=== PATIENT | female | born 1980 | race Two or more races ===

== ENCOUNTER 2017-04-24 01:38 | Inpatient (IN) | payer SELFPAY ==
[~2017-04-24] VITALS: Ht 152.4 cm; Wt 43.0 kg
[2017-04-24 02:28] LABS: Basophils # (auto) 0 uL; CONDITION Y; Eosinophils # (auto) 0 uL; Hematocrit 42.3 % (36.0-46.0); Hemoglobin 14.1 g/dL (12.2-16.2); Lymphocytes % (auto) 8.6 % (10.0-50.0); Mean Corpuscular Hemoglobin 30.2 pg (28.0-32.0); Mean Corpuscular Hgb Conc. 33.2 g/dL (32.0-36.0); Mean Platelet Volume 8.4 fL (7.4-10.4); Monocytes % (auto) 8.3 % (0.0-12.0); Neutrophils # (auto) 9.5 uL; Neutrophils % (auto) 83.1 % (37.0-80.0); Platelet Count (auto) 269 10^3/uL (140-450); Red Cell Distribution Width 13.4 % (11.6-16.0); White Blood Cell 11.5 10^3/uL (4.4-10.8)
[2017-04-24 02:51] LABS: Albumin 4.6 g/dL (3.4-5.0); Anion Gap 14 (5-15); Aspartate Aminotransferase 35 U/L (15-37); BUN/Creatinine Ratio 23.5; Blood Urea Nitrogen 20 mg/dL (7-18); Calcium 9.5 mg/dL (8.5-10.1); Carbon Dioxide 21 mmol/L (21-32); Chloride 114 mmol/L (98-107); GFR African American 97 mL/min; GFR Non-African American 80 mL/min; Glucose 110 mg/dL (74-106); Potassium 3.1 mmol/L (3.5-5.1); Sodium 149 mmol/L (136-145)
[2017-04-24 02:53] LABS: Acetaminophen < 2.0 ug/mL (10-30); Salicylate < 1.7 mg/dL (2.8-20.0)
[2017-04-24 02:54] LABS: Alkaline Phosphatase 74 U/L (45-117); Bilirubin, Total 1.2 mg/dL (0.2-1.0); Total Protein 7.9 g/dL (6.4-8.2)
[2017-04-24 04:11] LABS: Urine Blood 2+ /uL (Negative); Urine Color Yellow (Yellow); Urine Glucose TRACE mg/dL (Normal); Urine Hyaline Cast MANY /lpf (0 - 2); Urine Ketone 3+ (Negative); Urine Mucus MODERATE (None Seen); Urine Nitrite Negative (Negative); Urine RBC 2 /hpf (0 - 4); Urine Squamous Epithelial Cell FEW /hpf (<5)
[2017-04-24 04:14] LABS: Urine Bilirubin POSITIVE (Negative)
[2017-04-24] MEDS ORDERED: LORazepam 2MG/ML-1ML VIAL IV ONE (04:30)
[2017-04-24] MEDS ORDERED: SODIUM CHLORIDE 0.9% 1,000 ML IV ONE (04:30)
[2017-04-24] MEDS ORDERED: LORazepam 2MG/ML-1ML VIAL ONE (05:19)
[2017-04-24] MEDS ORDERED: diphenhdrAMINE HCL 50 MG/1 ML VL IM ONE (05:45)
[2017-04-24] MEDS ORDERED: HALOPERIDOL LACTATE 5 MG/ML INJ VIAL IM ONE (05:45)
[2017-04-24] MEDS ORDERED: ACETAMINOPHEN 500 MG TAB PO PRN (08:30)
[2017-04-24] MEDS ORDERED: HYDROcodone-ACET 5/325MG TAB PO PRN (08:30)
[2017-04-24] MEDS ORDERED: cefTRIAXone 1GM/50ML D5W 50 ML IV ONE (08:30)
[2017-04-24] MEDS ORDERED: LACTULOSE 20Gm/30ML SOLN PO PRN (08:30)
[2017-04-24] MEDS ORDERED: MORPHINE SULF INJ 2 MG/ML SYRINGE 1ML IV PRN ×2 (08:30)
[2017-04-24] MEDS ORDERED: NITROGLYCERIN 0.4 MG SL TAB SL PRN (08:30)
[2017-04-24] MEDS: FAMOTIDINE (10MG/ML) 2ML VL IV SCH ×2 (08:50→20:38)
[2017-04-24] MEDS: SODIUM CHLORIDE 0.9% 1,000 ML IV SCH ×2 (08:50→18:12)
[2017-04-24] MEDS: LORazepam 2MG/ML-1ML VIAL IV PRN ×2 (08:59→15:22)
[2017-04-24 10:20] VITALS: BP 99/62
[2017-04-24 12:00] VITALS: BP 90/58
[2017-04-24] MEDS: HALOPERIDOL LACTATE 5 MG/ML INJ VIAL IV PRN (16:24)
[2017-04-24] MEDS ORDERED: LORazepam 2MG/ML-1ML VIAL IV PRN (17:45)
[2017-04-24 18:00] VITALS: BP 105/52
[2017-04-24 18:14] VITALS: BP 94/55
[2017-04-25] MEDS: HALOPERIDOL LACTATE 5 MG/ML INJ VIAL IV PRN ×2 (00:11→09:47)
[2017-04-25] MEDS: SODIUM CHLORIDE 0.9% 1,000 ML IV SCH ×2 (03:56→14:29)
[2017-04-25] MEDS: LORazepam 2MG/ML-1ML VIAL IV PRN ×2 (04:22→17:34)
[2017-04-25 05:46] VITALS: BP 91/59
[2017-04-25 06:10] LABS: Basophils # (auto) 0 uL; Basophils % (auto) 0.4 % (0.0-2.0); Eosinophils # (auto) 0 uL; Eosinophils % (auto) 0.5 % (0.0-7.0); Lymphocytes # (auto) 1.6 uL; Lymphocytes % (auto) 18.1 % (10.0-50.0); Monocytes # (auto) 0.7 uL; Monocytes % (auto) 8.2 % (0.0-12.0); Neutrophils # (auto) 6.3 uL; Neutrophils % (auto) 72.8 % (37.0-80.0); White Blood Cell 8.6 10^3/uL (4.4-10.8)
[2017-04-25 06:11] LABS: CONDITION Y; Hemoglobin 12.7 g/dL (12.2-16.2); Mean Corpuscular Hemoglobin 30.3 pg (28.0-32.0); Mean Corpuscular Hgb Conc. 32.7 g/dL (32.0-36.0); Mean Corpuscular Volume 92.6 fL (80.0-100.0); Mean Platelet Volume 8.8 fL (7.4-10.4); Platelet Count (auto) 210 10^3/uL (140-450); Red Cell Distribution Width 13.5 % (11.6-16.0)
[2017-04-25 06:26] LABS: Albumin 3.7 g/dL (3.4-5.0); Calcium 8.7 mg/dL (8.5-10.1)
[2017-04-25 06:31] LABS: Bilirubin, Total 1.1 mg/dL (0.2-1.0); Total Protein 6.8 g/dL (6.4-8.2)
[2017-04-25 06:35] LABS: Potassium 2.7 mmol/L (3.5-5.1)
[2017-04-25] MEDS ORDERED: POTASSIUM CHLORIDE 40 MEQ, LIDOCAINE 1% (LOCAL ANESTH.) 4 ML in SODIUM CHL 0.9% 250 ML IV ONE (07:15)
[2017-04-25 09:00] VITALS: BP 93/68
[2017-04-25] MEDS ORDERED: cefTRIAXone 1GM/50ML D5W 50 ML IV SCH (09:00)
[2017-04-25] MEDS: FAMOTIDINE (10MG/ML) 2ML VL IV SCH ×2 (10:30→20:36)
[2017-04-25] MEDS: cefTRIAXone 1GM/50ML D5W 50 ML IV SCH (11:30)
[2017-04-25 12:52] VITALS: BP 101/61
[2017-04-25 17:00] VITALS: BP 108/64
[2017-04-25 18:00] VITALS: BP 112/69
[2017-04-25 20:00] VITALS: BP 112/69
[2017-04-26] MEDS: SODIUM CHLORIDE 0.9% 1,000 ML IV SCH ×3 (00:29→20:12)
[2017-04-26] MEDS ORDERED: HALOPERIDOL LACTATE 5 MG/ML INJ VIAL IM ONE ×2 (03:00→22:15)
[2017-04-26 05:05] LABS: Basophils # (auto) 0 uL; Basophils % (auto) 0.2 % (0.0-2.0); CONDITION Y; Eosinophils # (auto) 0.1 uL; Eosinophils % (auto) 0.8 % (0.0-7.0); Hematocrit 39.3 % (36.0-46.0); Lymphocytes # (auto) 2.4 uL; Lymphocytes % (auto) 25.3 % (10.0-50.0); Mean Corpuscular Hemoglobin 30.2 pg (28.0-32.0); Mean Corpuscular Hgb Conc. 33.1 g/dL (32.0-36.0); Mean Corpuscular Volume 91.4 fL (80.0-100.0); Mean Platelet Volume 8.2 fL (7.4-10.4); Monocytes # (auto) 0.8 uL; Neutrophils # (auto) 6.3 uL; Neutrophils % (auto) 65.7 % (37.0-80.0); Platelet Count (auto) 230 10^3/uL (140-450); Red Cell Distribution Width 13.6 % (11.6-16.0); White Blood Cell 9.6 10^3/uL (4.4-10.8)
[2017-04-26 05:39] VITALS: BP 114/51
[2017-04-26 05:53] LABS: Albumin 3.9 g/dL (3.4-5.0); Calcium 8.7 mg/dL (8.5-10.1); Potassium 3.3 mmol/L (3.5-5.1)
[2017-04-26 06:03] LABS: Total Protein 7.2 g/dL (6.4-8.2)
[2017-04-26 08:00] VITALS: BP 112/69
[2017-04-26] MEDS: FAMOTIDINE (10MG/ML) 2ML VL IV SCH ×2 (08:30→20:13)
[2017-04-26 09:00] VITALS: BP 161/83
[2017-04-26] MEDS: cefTRIAXone 1GM/50ML D5W 50 ML IV SCH (09:00)
[2017-04-26] MEDS ORDERED: POTASSIUM CHLORIDE 8 MEQ TAB PO ONE (10:15)
[2017-04-26] MEDS ORDERED: risperiDONE 1 MG TAB PO ONE (10:15)
[2017-04-26 13:00] VITALS: BP 155/70
[2017-04-26 17:19] VITALS: BP 140/66
[2017-04-26] MEDS: HALOPERIDOL LACTATE 5 MG/ML INJ VIAL IV PRN (17:39)
[2017-04-26] MEDS ORDERED: risperiDONE 1 MG TAB PO SCH ×2 (18:00)
[2017-04-26 22:21] VITALS: BP 121/61
[2017-04-27 05:23] VITALS: BP 107/61
[2017-04-27 05:45] LABS: Basophils # (auto) 0 uL; Basophils % (auto) 0.3 % (0.0-2.0); CONDITION Y; Eosinophils # (auto) 0.1 uL; Eosinophils % (auto) 1.1 % (0.0-7.0); Hematocrit 40.4 % (36.0-46.0); Hemoglobin 13.4 g/dL (12.2-16.2); Lymphocytes # (auto) 1.7 uL; Lymphocytes % (auto) 23.5 % (10.0-50.0); Mean Corpuscular Hemoglobin 30.4 pg (28.0-32.0); Mean Corpuscular Hgb Conc. 33.1 g/dL (32.0-36.0); Mean Corpuscular Volume 91.8 fL (80.0-100.0); Mean Platelet Volume 8.6 fL (7.4-10.4); Monocytes # (auto) 0.6 uL; Monocytes % (auto) 7.8 % (0.0-12.0); Neutrophils # (auto) 4.9 uL; Neutrophils % (auto) 67.3 % (37.0-80.0); Platelet Count (auto) 234 10^3/uL (140-450); Red Cell Distribution Width 13.6 % (11.6-16.0); White Blood Cell 7.3 10^3/uL (4.4-10.8)
[2017-04-27 06:18] LABS: Albumin 3.9 g/dL (3.4-5.0); BUN/Creatinine Ratio 18.2; Calcium 9.1 mg/dL (8.5-10.1); Potassium 3.4 mmol/L (3.5-5.1)
[2017-04-27 06:21] LABS: Bilirubin, Total 1.1 mg/dL (0.2-1.0); Total Protein 7.2 g/dL (6.4-8.2)
[2017-04-27] MEDS: SODIUM CHLORIDE 0.9% 1,000 ML IV SCH ×2 (06:29→16:29)
[2017-04-27] MEDS: FAMOTIDINE (10MG/ML) 2ML VL IV SCH ×2 (08:30→20:30)
[2017-04-27] MEDS: cefTRIAXone 1GM/50ML D5W 50 ML IV SCH (09:00)
[2017-04-27 09:01] VITALS: BP 100/74
[2017-04-27] MEDS ORDERED: risperiDONE 1 MG TAB PO SCH (10:00)
[2017-04-27] MEDS ORDERED: OLANZapine 5 MG TAB PO ONE (11:30)
[2017-04-27] MEDS ORDERED: POTASSIUM CHL 20 Meq TABLET PO ONE (11:30)
[2017-04-27 13:00] VITALS: BP 125/70
[2017-04-27 17:07] VITALS: BP 139/80
[2017-04-27 20:30] VITALS: BP 104/45
[2017-04-27 21:11] VITALS: BP 104/45
[2017-04-28] MEDS: SODIUM CHLORIDE 0.9% 1,000 ML IV SCH ×3 (02:29→22:29)
[2017-04-28 05:13] VITALS: BP 109/54
[2017-04-28 07:36] LABS: Basophils # (auto) 0 uL; Basophils % (auto) 0.3 % (0.0-2.0); CONDITION Y; Eosinophils # (auto) 0.1 uL; Eosinophils % (auto) 1.9 % (0.0-7.0); Hematocrit 43.7 % (36.0-46.0); Hemoglobin 14.5 g/dL (12.2-16.2); Lymphocytes # (auto) 2.5 uL; Lymphocytes % (auto) 34.4 % (10.0-50.0); Mean Corpuscular Hemoglobin 30.6 pg (28.0-32.0); Mean Corpuscular Hgb Conc. 33.3 g/dL (32.0-36.0); Mean Platelet Volume 8.4 fL (7.4-10.4); Monocytes # (auto) 0.6 uL; Monocytes % (auto) 8.1 % (0.0-12.0); Neutrophils # (auto) 3.9 uL; Neutrophils % (auto) 55.3 % (37.0-80.0); Platelet Count (auto) 264 10^3/uL (140-450); Red Cell Distribution Width 13.4 % (11.6-16.0); White Blood Cell 7.1 10^3/uL (4.4-10.8)
[2017-04-28 08:00] LABS: Albumin 3.8 g/dL (3.4-5.0); BUN/Creatinine Ratio 35.1; Bilirubin, Total 1.2 mg/dL (0.2-1.0); Calcium 9.3 mg/dL (8.5-10.1); Potassium 3.8 mmol/L (3.5-5.1); Total Protein 7.5 g/dL (6.4-8.2)
[2017-04-28] MEDS: FAMOTIDINE (10MG/ML) 2ML VL IV SCH ×2 (08:30→20:30)
[2017-04-28 09:00] VITALS: BP 96/70
[2017-04-28] MEDS: cefTRIAXone 1GM/50ML D5W 50 ML IV SCH (09:00)
[2017-04-28] MEDS: OLANZapine 5 MG TAB PO SCH (10:00)
[2017-04-28 13:00] VITALS: BP 108/89
[2017-04-28 16:55] VITALS: BP 101/68
[2017-04-28 22:54] VITALS: BP 110/79
[2017-04-29 05:54] VITALS: BP 120/65
[2017-04-29] MEDS: SODIUM CHLORIDE 0.9% 1,000 ML IV SCH (08:06)
[2017-04-29] MEDS: FAMOTIDINE (10MG/ML) 2ML VL IV SCH (08:06)
[2017-04-29] MEDS: cefTRIAXone 1GM/50ML D5W 50 ML IV SCH (08:06)
[2017-04-29 09:00] VITALS: BP 102/61
[2017-04-29] MEDS: OLANZapine 5 MG TAB PO SCH (10:00)
[2017-04-29 13:00] VITALS: BP 108/63
[2017-04-29] MEDS ORDERED: HALOPERIDOL 1 MG TAB PO PRN (17:00)
[2017-04-29 17:25] VITALS: BP 87/41
[2017-04-29 18:26] LABS: Vitamin B12 1672 pg/mL (211-911)
[2017-04-29 18:49] LABS: Temperature: 22.2 C (20.0-25.0)
[2017-04-29] MEDS: HALOPERIDOL 1 MG TAB PO SCH (21:37)
[2017-04-30] MEDS: HALOPERIDOL 1 MG TAB PO SCH ×2 (10:00→21:49)
[2017-04-30] MEDS: OLANZapine 5 MG TAB PO SCH (10:00)
[2017-05-01 09:29] VITALS: BP 126/93
[2017-05-01] MEDS: HALOPERIDOL 1 MG TAB PO SCH ×2 (10:00→22:00)
[2017-05-01] MEDS: OLANZapine 5 MG TAB PO SCH (10:00)
== END 2017-05-02 10:41 | disposition psychiatric hospital, planned readmission (93) | DRG 56 ==
LOC: ER 01:38 → TELE 01:39 → TELE-WESTW 10:24 → WEST WING 04-26 18:33
PROVIDERS: ADMIT Internal Medicine; ATTEND Family Medicine
DX: G10 Huntington's disease (principal); G93.41 Metabolic encephalopathy; E87.0 Hyperosmolality and hypernatremia; F03.90 Unspecified dementia, unspecified severity, without behavioral disturbance, psychotic disturbance, mood disturbance, and anxiety; R41.82 Altered mental status, unspecified; E87.6 Hypokalemia; F29 Unspecified psychosis not due to a substance or known physiological condition
CPT/HCPCS: 36415; 70450; 71010; 80053; 80307; 80320; 80329; 81001; 82607; 82746; 83735; 84443; 84702; 85025; 85652; 87086; 93005; 96365; 96372; 96375; A4565; J0696; J2001; J3490

== ENCOUNTER 2017-05-02 12:56 | Inpatient (IN) | payer MEDICAID ==
[~2017-05-02] VITALS: Ht 152.4 cm; Wt 44.1 kg
[2017-05-02] MEDS ORDERED: OLANZapine 5 MG TAB PO ONE (15:15)
[2017-05-02] MEDS ORDERED: LORazepam 2MG/ML-1ML VIAL IM ONE ×2 (16:45→20:30)
[2017-05-03] MEDS ORDERED: MORPHINE SULF INJ 2 MG/ML SYRINGE 1ML IV PRN (10:00)
[2017-05-03] MEDS ORDERED: NITROGLYCERIN 0.4 MG SL TAB SL PRN (10:00)
[2017-05-03] MEDS ORDERED: OLANZapine 5 MG TAB PO ONE (12:15)
[2017-05-03] MEDS: HALOPERIDOL 1 MG TAB PO SCH ×2 (12:31→22:00)
[2017-05-03] MEDS ORDERED: HALOPERIDOL LACTATE 5 MG/ML INJ VIAL IM ONE (13:45)
[2017-05-04] MEDS: HALOPERIDOL 1 MG TAB PO SCH ×2 (10:11→22:55)
[2017-05-04] MEDS: OLANZapine 5 MG TAB PO SCH (10:11)
[2017-05-05] MEDS: HALOPERIDOL 1 MG TAB PO SCH ×2 (10:24→21:50)
[2017-05-05] MEDS: OLANZapine 5 MG TAB PO SCH (10:24)
[2017-05-06] MEDS: OLANZapine 5 MG TAB PO SCH (09:47)
[2017-05-06] MEDS: HALOPERIDOL 1 MG TAB PO SCH ×2 (10:00→11:30)
[2017-05-06] MEDS ORDERED: HALOPERIDOL LACTATE 5 MG/ML INJ VIAL ONE (11:21)
[2017-05-06] MEDS ORDERED: HALOPERIDOL LACTATE 5 MG/ML INJ VIAL IM ONE (13:30)
[2017-05-07] MEDS: OLANZapine 5 MG TAB PO SCH ×2 (10:00→10:02)
[2017-05-07] MEDS: HALOPERIDOL 1 MG TAB PO SCH ×3 (10:00→22:00)
[2017-05-08] MEDS: OLANZapine 5 MG TAB PO SCH (09:40)
[2017-05-08] MEDS: HALOPERIDOL 1 MG TAB PO SCH ×2 (09:40→22:00)
[2017-05-09] VITALS (7 sets, daily range): BP systolic 90–109; BP diastolic 47–74
[2017-05-09 07:06] LABS: Calcium 9.4 mg/dL (8.5-10.1); Potassium 4.3 mmol/L (3.5-5.1)
[2017-05-09 07:22] LABS: Basophils # (auto) 0 uL; Basophils % (auto) 0.3 % (0.0-2.0); Eosinophils # (auto) 0.1 uL; Eosinophils % (auto) 1.4 % (0.0-7.0); Hematocrit 43.4 % (36.0-46.0); Hemoglobin 14.4 g/dL (12.2-16.2); Lymphocytes # (auto) 3.5 uL; Mean Corpuscular Hemoglobin 30.3 pg (28.0-32.0); Mean Corpuscular Hgb Conc. 33.2 g/dL (32.0-36.0); Mean Corpuscular Volume 91.2 fL (80.0-100.0); Monocytes # (auto) 0.6 uL; Monocytes % (auto) 8.2 % (0.0-12.0); Neutrophils # (auto) 3.5 uL; Neutrophils % (auto) 45.1 % (37.0-80.0); Platelet Count (auto) 309 10^3/uL (140-450); Red Blood Cells 4.76 10^6/uL (4.0-5.20); Red Cell Distribution Width 12.9 % (11.8-14.3); White Blood Cell 7.7 10^3/uL (4.4-10.8)
[2017-05-09] MEDS: OLANZapine 5 MG TAB PO SCH (10:38)
[2017-05-09] MEDS: HALOPERIDOL 1 MG TAB PO SCH ×2 (10:38→21:40)
[2017-05-09] MEDS ORDERED: SODIUM CHLORIDE 0.9% 1,000 ML IV ONE (12:30)
[2017-05-10 05:00] VITALS: BP 95/54
[2017-05-10 09:00] VITALS: BP 110/68
[2017-05-10] MEDS: HALOPERIDOL 1 MG TAB PO SCH ×2 (09:32→21:34)
[2017-05-10] MEDS: OLANZapine 5 MG TAB PO SCH (09:32)
[2017-05-10 14:03] VITALS: BP 98/61
[2017-05-10 18:06] VITALS: BP 92/59
[2017-05-10 20:00] VITALS: BP 157/90
[2017-05-10 23:39] VITALS: BP 120/65
[2017-05-11 05:00] VITALS: BP 97/53
[2017-05-11 06:12] VITALS: BP 97/53
[2017-05-11] MEDS: OLANZapine 5 MG TAB PO SCH (09:25)
[2017-05-11] MEDS: HALOPERIDOL 1 MG TAB PO SCH ×2 (09:26→21:53)
[2017-05-11 15:13] VITALS: BP 96/65
[2017-05-11 18:03] VITALS: BP 93/63
[2017-05-11 21:37] VITALS: BP 114/51
[2017-05-12 05:42] VITALS: BP 101/59
[2017-05-12 08:00] VITALS: BP 101/59
[2017-05-12 09:00] VITALS: BP 101/59
[2017-05-12] MEDS: OLANZapine 5 MG TAB PO SCH (10:00)
[2017-05-12] MEDS: HALOPERIDOL 1 MG TAB PO SCH ×2 (10:00→22:29)
[2017-05-12 13:12] VITALS: BP 112/73
[2017-05-12 17:00] VITALS: BP 97/63
[2017-05-12 21:44] VITALS: BP 116/68
[2017-05-13 06:00] VITALS: BP 105/61
[2017-05-13 08:00] VITALS: BP 97/64
[2017-05-13] MEDS: HALOPERIDOL 1 MG TAB PO SCH ×2 (10:15→22:17)
[2017-05-13] MEDS: OLANZapine 5 MG TAB PO SCH (10:15)
[2017-05-13 11:45] VITALS: BP 115/56
[2017-05-13] MEDS: BOOST PLUS 8 ounce PO SCH ×2 (12:17→17:36)
[2017-05-13 17:00] VITALS: BP 100/62
[2017-05-13 22:00] VITALS: BP 103/56
[2017-05-14 04:45] VITALS: BP 106/51
[2017-05-14] MEDS: BOOST PLUS 8 ounce PO SCH ×3 (08:00→18:01)
[2017-05-14 08:53] VITALS: BP 110/66
[2017-05-14] MEDS: OLANZapine 5 MG TAB PO SCH (09:15)
[2017-05-14] MEDS: HALOPERIDOL 1 MG TAB PO SCH ×2 (09:15→21:21)
[2017-05-14 15:43] VITALS: BP 104/57
[2017-05-14 20:00] VITALS: BP 105/55
[2017-05-14 21:30] VITALS: BP 105/55
[2017-05-15] MEDS: BOOST PLUS 8 ounce PO SCH ×3 (08:00→18:15)
[2017-05-15 09:00] VITALS: BP 101/49
[2017-05-15] MEDS: HALOPERIDOL 1 MG TAB PO SCH ×2 (09:38→20:55)
[2017-05-15] MEDS: OLANZapine 5 MG TAB PO SCH (09:38)
[2017-05-15 13:00] VITALS: BP 110/63
[2017-05-15 17:00] VITALS: BP 91/46
[2017-05-16 06:39] VITALS: BP 99/58
[2017-05-16] MEDS: BOOST PLUS 8 ounce PO SCH ×3 (08:10→18:28)
[2017-05-16] MEDS: OLANZapine 5 MG TAB PO SCH (08:57)
[2017-05-16] MEDS: HALOPERIDOL 1 MG TAB PO SCH ×2 (08:57→22:00)
[2017-05-16 13:00] VITALS: BP 97/56
[2017-05-16 17:00] VITALS: BP 97/54
[2017-05-17 05:00] VITALS: BP 101/51
[2017-05-17] MEDS: BOOST PLUS 8 ounce PO SCH ×3 (08:00→17:42)
[2017-05-17] MEDS: HYDROcodone-ACET 5/325MG TAB PO PRN (08:13)
[2017-05-17 09:00] VITALS: BP 105/47
[2017-05-17 13:00] VITALS: BP 101/52
[2017-05-17] MEDS: OLANZapine 5 MG TAB PO SCH (14:29)
[2017-05-17] MEDS: HALOPERIDOL 1 MG TAB PO SCH ×2 (14:29→21:40)
[2017-05-17 17:00] VITALS: BP 96/49
[2017-05-17 22:19] VITALS: BP 98/60
[2017-05-18] MEDS: HYDROcodone-ACET 5/325MG TAB PO PRN ×2 (03:26→09:27)
[2017-05-18 04:32] VITALS: BP 92/69
[2017-05-18] MEDS: BOOST PLUS 8 ounce PO SCH ×3 (08:00→18:00)
[2017-05-18 09:00] VITALS: BP 102/55
[2017-05-18] MEDS: HALOPERIDOL 1 MG TAB PO SCH ×2 (09:26→22:17)
[2017-05-18] MEDS: OLANZapine 5 MG TAB PO SCH (09:26)
[2017-05-18 13:00] VITALS: BP 99/67
[2017-05-18 17:00] VITALS: BP 101/65
[2017-05-18 22:00] VITALS: BP 82/66
[2017-05-18] MEDS ORDERED: HALOPERIDOL LACTATE 5 MG/ML INJ VIAL ONE (22:29)
[2017-05-18] MEDS ORDERED: HALOPERIDOL LACTATE 5 MG/ML INJ VIAL IM ONE (22:45)
[2017-05-19 05:00] VITALS: BP 94/55
[2017-05-19] MEDS: BOOST PLUS 8 ounce PO SCH (08:00)
[2017-05-19 09:00] VITALS: BP 104/59
[2017-05-19] MEDS: HALOPERIDOL 1 MG TAB PO SCH ×2 (10:11→20:11)
[2017-05-19] MEDS: OLANZapine 5 MG TAB PO SCH (10:11)
[2017-05-19 13:00] VITALS: BP 111/76
[2017-05-19 17:00] VITALS: BP 101/59
[2017-05-19 22:00] VITALS: BP 98/59
[2017-05-20 04:57] VITALS: BP 117/64
[2017-05-20 09:05] VITALS: BP 125/74
[2017-05-20 13:00] VITALS: BP 117/74
[2017-05-20 17:57] VITALS: BP 130/82
[2017-05-20] MEDS: OLANZapine 5 MG TAB PO SCH (18:06)
[2017-05-20] MEDS: HALOPERIDOL 1 MG TAB PO SCH ×2 (18:06→22:27)
[2017-05-21 00:13] VITALS: BP 102/59
[2017-05-21 05:41] VITALS: BP 107/68
[2017-05-21] MEDS: BOOST PLUS 8 ounce PO SCH ×3 (08:00→18:00)
[2017-05-21 09:00] VITALS: BP 116/48
[2017-05-21] MEDS: HALOPERIDOL 1 MG TAB PO SCH ×2 (11:45→20:48)
[2017-05-21] MEDS: OLANZapine 5 MG TAB PO SCH (11:45)
[2017-05-21 13:00] VITALS: BP 107/52
[2017-05-21 16:59] VITALS: BP 107/31
[2017-05-21 22:00] VITALS: BP 105/55
[2017-05-21] MEDS ORDERED: HALOPERIDOL 1 MG TAB PO PRN (22:00)
[2017-05-22 05:24] VITALS: BP 116/52
[2017-05-22] MEDS: BOOST PLUS 8 ounce PO SCH ×3 (08:00→18:00)
[2017-05-22 09:00] VITALS: BP 99/57
[2017-05-22] MEDS: OLANZapine 5 MG TAB PO SCH (12:00)
[2017-05-22] MEDS: HALOPERIDOL 1 MG TAB PO SCH ×2 (12:00→22:00)
[2017-05-22 17:00] VITALS: BP 101/54
[2017-05-22 22:45] VITALS: BP 105/59
[2017-05-23 05:38] VITALS: BP 115/61
[2017-05-23 06:30] VITALS: BP 113/56
[2017-05-23] MEDS: OLANZapine 5 MG TAB PO SCH ×2 (11:21→15:37)
[2017-05-23] MEDS: HALOPERIDOL 1 MG TAB PO SCH ×3 (11:21→22:02)
[2017-05-23] MEDS: BOOST PLUS 8 ounce PO SCH ×3 (12:00→19:00)
[2017-05-23 12:28] VITALS: BP 112/56
[2017-05-23 20:41] VITALS: BP 98/55
[2017-05-24 05:00] VITALS: BP 93/47
[2017-05-24 05:56] LABS: Basophils # (auto) 0 uL; Basophils % (auto) 0.3 % (0.0-2.0); Eosinophils # (auto) 0.2 uL; Eosinophils % (auto) 2.4 % (0.0-7.0); Hematocrit 35.6 % (36.0-46.0); Lymphocytes # (auto) 2.3 uL; Lymphocytes % (auto) 29.3 % (10.0-50.0); Mean Corpuscular Hemoglobin 30.9 pg (28.0-32.0); Mean Corpuscular Hgb Conc. 33.8 g/dL (32.0-36.0); Mean Corpuscular Volume 91.5 fL (80.0-100.0); Monocytes # (auto) 0.8 uL; Monocytes % (auto) 10.4 % (0.0-12.0); Neutrophils # (auto) 4.6 uL; Neutrophils % (auto) 57.6 % (37.0-80.0); Platelet Count (auto) 211 10^3/uL (140-450); Red Blood Cells 3.89 10^6/uL (4.0-5.20); White Blood Cell 7.9 10^3/uL (4.4-10.8)
[2017-05-24 06:10] LABS: Albumin 3.1 g/dL (3.4-5.0); BUN/Creatinine Ratio 52.9; Bilirubin, Total 0.2 mg/dL (0.2-1.0); Calcium 8.6 mg/dL (8.5-10.1); Potassium 4.3 mmol/L (3.5-5.1); Total Protein 6.5 g/dL (6.4-8.2)
[2017-05-24] MEDS: BOOST PLUS 8 ounce PO SCH ×3 (08:00→18:00)
[2017-05-24 09:01] VITALS: BP 101/52
[2017-05-24] MEDS: HALOPERIDOL 1 MG TAB PO SCH ×2 (10:40→21:46)
[2017-05-24] MEDS: OLANZapine 5 MG TAB PO SCH (10:41)
[2017-05-24 13:00] VITALS: BP 98/55
[2017-05-24 17:41] VITALS: BP 114/60
[2017-05-24 20:13] VITALS: BP 111/75
[2017-05-25 04:51] VITALS: BP 110/74
[2017-05-25] MEDS: BOOST PLUS 8 ounce PO SCH ×3 (08:00→18:00)
[2017-05-25 09:00] VITALS: BP 126/63
[2017-05-25] MEDS: HALOPERIDOL 1 MG TAB PO SCH ×2 (10:41→21:22)
[2017-05-25] MEDS: OLANZapine 5 MG TAB PO SCH (10:41)
[2017-05-25 13:00] VITALS: BP 106/67
[2017-05-25 17:00] VITALS: BP 123/62
[2017-05-26] MEDS: BOOST PLUS 8 ounce PO SCH ×3 (08:00→18:00)
[2017-05-26 09:00] VITALS: BP 108/68
[2017-05-26] MEDS: HALOPERIDOL 1 MG TAB PO SCH ×2 (14:38→20:07)
[2017-05-26] MEDS: OLANZapine 5 MG TAB PO SCH (14:38)
[2017-05-26 17:00] VITALS: BP 89/48
[2017-05-26 22:00] VITALS: BP 81/35
[2017-05-27 05:00] VITALS: BP 99/56
[2017-05-27] MEDS: BOOST PLUS 8 ounce PO SCH ×3 (08:00→17:31)
[2017-05-27 09:00] VITALS: BP 139/127
[2017-05-27] MEDS: OLANZapine 5 MG TAB PO SCH (10:29)
[2017-05-27] MEDS: HALOPERIDOL 1 MG TAB PO SCH ×2 (10:29→21:53)
[2017-05-28] MEDS: BOOST PLUS 8 ounce PO SCH ×3 (08:00→18:00)
[2017-05-28 09:00] VITALS: BP 112/60
[2017-05-28] MEDS: HALOPERIDOL 1 MG TAB PO SCH ×2 (10:08→22:06)
[2017-05-28] MEDS: OLANZapine 5 MG TAB PO SCH (10:08)
[2017-05-28 17:00] VITALS: BP 107/64
[2017-05-29 05:37] VITALS: BP 101/65
[2017-05-29] MEDS: BOOST PLUS 8 ounce PO SCH ×3 (07:59→17:55)
[2017-05-29 09:00] VITALS: BP 99/59
[2017-05-29 13:00] VITALS: BP 110/67
[2017-05-29] MEDS: HALOPERIDOL 1 MG TAB PO SCH ×2 (15:04→21:20)
[2017-05-29] MEDS: OLANZapine 5 MG TAB PO SCH (15:04)
[2017-05-29 17:00] VITALS: BP 121/80
[2017-05-29 22:00] VITALS: BP 107/64
[2017-05-30 05:38] VITALS: BP 110/61
[2017-05-30] MEDS: BOOST PLUS 8 ounce PO SCH ×3 (08:00→20:27)
[2017-05-30 09:00] VITALS: BP 96/66
[2017-05-30] MEDS: OLANZapine 5 MG TAB PO SCH (10:00)
[2017-05-30] MEDS: HALOPERIDOL 1 MG TAB PO SCH ×2 (12:55→21:30)
[2017-05-30 13:08] VITALS: BP 121/52
[2017-05-30 16:29] VITALS: BP 111/50
[2017-05-30 21:16] VITALS: BP 101/70
[2017-05-31 05:05] VITALS: BP 115/73
[2017-05-31] MEDS: BOOST PLUS 8 ounce PO SCH (08:00)
[2017-05-31 09:16] VITALS: BP 116/72
[2017-05-31] MEDS: HALOPERIDOL 1 MG TAB PO SCH ×2 (12:26→23:15)
[2017-05-31] MEDS: OLANZapine 5 MG TAB PO SCH (12:26)
[2017-05-31 13:00] VITALS: BP 124/71
[2017-05-31 16:56] VITALS: BP 117/78
[2017-06-01] MEDS: OLANZapine 5 MG TAB PO SCH ×2 (09:08→09:34)
[2017-06-01] MEDS: HALOPERIDOL 1 MG TAB PO SCH ×3 (09:08→22:00)
[2017-06-01 16:57] VITALS: BP 169/117
[2017-06-01 22:00] VITALS: BP 120/60
[2017-06-02] MEDS: OLANZapine 5 MG TAB PO SCH ×2 (10:00→14:05)
[2017-06-02] MEDS: HALOPERIDOL 1 MG TAB PO SCH ×2 (10:00→14:05)
[2017-06-02 13:00] VITALS: BP 126/85
[2017-06-02 13:19] LABS: BUN/Creatinine Ratio 54.3; Calcium 9.6 mg/dL (8.5-10.1); Potassium 4.2 mmol/L (3.5-5.1)
[2017-06-02 20:44] VITALS: BP 111/77
[2017-06-02] MEDS ORDERED: HALOPERIDOL 1 MG TAB PO ONE (23:59)
[2017-06-03 08:45] VITALS: BP 127/80
[2017-06-03] MEDS: HALOPERIDOL 1 MG TAB PO SCH (10:11)
[2017-06-03] MEDS: OLANZapine 5 MG TAB PO SCH (10:12)
[2017-06-03] MEDS ORDERED: HALOPERIDOL LACTATE 5 MG/ML INJ VIAL IM ONE (18:45)
[2017-06-04 05:41] VITALS: BP 115/64
[2017-06-04 09:00] VITALS: BP 134/64
[2017-06-05 09:37] VITALS: BP 111/68
[2017-06-05 13:00] VITALS: BP 120/75
[2017-06-05 17:22] VITALS: BP 125/87
[2017-06-06 13:28] VITALS: BP 133/49
[2017-06-06] MEDS: HALOPERIDOL LACTATE 5 MG/ML INJ VIAL IM PRN (15:40)
[2017-06-06 17:00] VITALS: BP 103/52
[2017-06-06 22:00] VITALS: BP 132/64
[2017-06-07 06:14] VITALS: BP 128/70
[2017-06-07 09:00] VITALS: BP 118/72
[2017-06-07 11:08] VITALS: BP 128/79
[2017-06-07 16:59] VITALS: BP 120/70
[2017-06-07 22:00] VITALS: BP 98/52
[2017-06-08 04:59] VITALS: BP 95/54
[2017-06-08] MEDS: HALOPERIDOL LACTATE 5 MG/ML INJ VIAL IM PRN (08:47)
[2017-06-08 17:10] VITALS: BP 115/60
[2017-06-08 21:30] VITALS: BP 103/63
[2017-06-09 05:00] VITALS: BP 101/65
[2017-06-09 09:06] VITALS: BP 107/68
[2017-06-09] MEDS ORDERED: CALCIUM CARB 500 MG CHEW TAB PO STA (10:10)
[2017-06-09] MEDS ORDERED: CALCIUM CARB 500 MG CHEW TAB PO PRN (10:15)
[2017-06-09] MEDS: HALOPERIDOL LACTATE 5 MG/ML INJ VIAL IM PRN (12:00)
[2017-06-09 22:00] VITALS: BP 111/59
[2017-06-10 06:00] VITALS: BP 105/63
[2017-06-10 09:00] VITALS: BP 108/60
[2017-06-10] MEDS: HALOPERIDOL LACTATE 5 MG/ML INJ VIAL IM PRN (12:51)
[2017-06-10 13:00] VITALS: BP 110/78
[2017-06-10 20:46] VITALS: BP 99/55
[2017-06-11 05:23] VITALS: BP 97/59
[2017-06-11 22:00] VITALS: BP 106/67
[2017-06-12 05:00] VITALS: BP 107/53
[2017-06-12] MEDS: HALOPERIDOL 1 MG TAB PO PRN (12:41)
[2017-06-12 22:00] VITALS: BP 101/55
[2017-06-13] MEDS: HALOPERIDOL 1 MG TAB PO PRN (12:32)
[2017-06-15 08:39] VITALS: BP 117/57
[2017-06-15 14:17] LABS: Albumin 4.1 g/dL (3.4-5.0); BUN/Creatinine Ratio 32.1; Bilirubin, Total 0.2 mg/dL (0.2-1.0); Calcium 9.5 mg/dL (8.5-10.1); Total Protein 8.4 g/dL (6.4-8.2)
[2017-06-16] MEDS: HALOPERIDOL 1 MG TAB PO PRN (19:22)
[2017-06-17] MEDS: HALOPERIDOL 1 MG TAB PO PRN (17:55)
[2017-06-17 21:30] VITALS: BP 104/49
[2017-06-18 05:00] VITALS: BP 98/58
[2017-06-18 08:00] VITALS: BP 101/62
[2017-06-18 12:00] VITALS: BP 107/56
[2017-06-18 16:52] VITALS: BP 103/60
[2017-06-18 22:00] VITALS: BP 93/54
[2017-06-19 05:00] VITALS: BP 105/59
[2017-06-19 09:00] VITALS: BP 105/64
[2017-06-19] MEDS: HALOPERIDOL LACTATE 5 MG/ML INJ VIAL IM PRN ×2 (14:45→18:00)
[2017-06-19 17:00] VITALS: BP 97/74
[2017-06-19 21:47] VITALS: BP 96/54
[2017-06-20 05:00] VITALS: BP 117/70
[2017-06-20 09:00] VITALS: BP 121/72
[2017-06-20 13:00] VITALS: BP 112/69
[2017-06-20 21:34] VITALS: BP 116/93
[2017-06-21 05:52] VITALS: BP 126/68
[2017-06-21 09:00] VITALS: BP 112/69
[2017-06-21 21:00] VITALS: BP 120/58
[2017-06-22 05:40] VITALS: BP 118/72
[2017-06-22 09:00] VITALS: BP 104/66
[2017-06-22] MEDS: HALOPERIDOL LACTATE 5 MG/ML INJ VIAL IM PRN (13:16)
[2017-06-22 16:00] VITALS: BP 99/61
[2017-06-22 22:00] VITALS: BP 99/67
[2017-06-23 05:00] VITALS: BP 105/56
[2017-06-23 08:58] VITALS: BP 131/82
[2017-06-23] MEDS: HALOPERIDOL LACTATE 5 MG/ML INJ VIAL IM PRN (14:43)
[2017-06-23 22:00] VITALS: BP 120/70
[2017-06-24 05:45] VITALS: BP 110/68
[2017-06-24 09:00] VITALS: BP 107/74
[2017-06-24 13:00] VITALS: BP 118/76
[2017-06-24 16:42] VITALS: BP 114/67
[2017-06-26 21:01] VITALS: BP 110/68
[2017-06-27 05:31] VITALS: BP 126/64
[2017-06-27] MEDS: HALOPERIDOL 1 MG TAB PO SCH ×3 (21:58→23:54)
[2017-06-27 22:00] VITALS: BP 102/47
[2017-06-28] MEDS: HALOPERIDOL 1 MG TAB PO SCH ×2 (09:04→22:00)
[2017-06-28 13:30] VITALS: BP 118/68
[2017-06-29 03:02] VITALS: BP 107/48
[2017-06-29] MEDS: HALOPERIDOL 1 MG TAB PO SCH ×2 (08:03→21:03)
[2017-06-29 22:00] VITALS: BP 132/111
[2017-06-30 08:36] VITALS: BP 117/68
[2017-06-30] MEDS: HALOPERIDOL 1 MG TAB PO SCH ×3 (09:49→22:54)
[2017-06-30 12:14] VITALS: BP 97/66
[2017-06-30 17:26] VITALS: BP 84/60
[2017-06-30 22:00] VITALS: BP 114/95
[2017-07-01] MEDS: HALOPERIDOL 1 MG TAB PO SCH ×2 (08:08→18:22)
[2017-07-01 09:45] VITALS: BP 130/72
[2017-07-01 17:31] VITALS: BP 132/79
[2017-07-01 21:55] VITALS: BP 111/64
[2017-07-02 05:00] VITALS: BP 100/50
[2017-07-02] MEDS: HALOPERIDOL 1 MG TAB PO SCH ×2 (11:48→18:19)
[2017-07-03 05:00] VITALS: BP 100/61
[2017-07-03] MEDS: HALOPERIDOL 1 MG TAB PO SCH ×2 (08:08→17:51)
[2017-07-03 17:00] VITALS: BP 99/61
[2017-07-03 22:59] VITALS: BP 129/99
[2017-07-04 05:25] VITALS: BP 106/70
[2017-07-04] MEDS: HALOPERIDOL 1 MG TAB PO SCH ×2 (08:19→18:01)
[2017-07-04 09:00] VITALS: BP 101/66
[2017-07-04 17:00] VITALS: BP 103/60
[2017-07-04 21:55] VITALS: BP 110/63
[2017-07-05] MEDS: HALOPERIDOL 1 MG TAB PO SCH ×2 (08:36→17:39)
[2017-07-05 09:00] VITALS: BP 108/64
[2017-07-05 09:22] LABS: Basophils # (auto) 0 uL; Basophils % (auto) 0.2 % (0.0-2.0); Eosinophils # (auto) 0.1 uL; Eosinophils % (auto) 1.5 % (0.0-7.0); Hematocrit 41.5 % (36.0-46.0); Lymphocytes # (auto) 2.5 uL; Mean Corpuscular Hemoglobin 31.4 pg (28.0-32.0); Mean Corpuscular Hgb Conc. 33.8 g/dL (32.0-36.0); Monocytes # (auto) 0.7 uL; Monocytes % (auto) 8.5 % (0.0-12.0); Neutrophils # (auto) 4.7 uL; Neutrophils % (auto) 58.8 % (37.0-80.0); Nucleated Red Blood Cells % 0.1 %; Platelet Count (auto) 242 10^3/uL (140-450); Red Blood Cells 4.46 10^6/uL (4.0-5.20); Red Cell Distribution Width 14.2 % (11.8-14.3)
[2017-07-05 09:51] LABS: BUN/Creatinine Ratio 45.5; Bilirubin, Total 0.4 mg/dL (0.2-1.0); Calcium 9.7 mg/dL (8.5-10.1); Potassium 4.4 mmol/L (3.5-5.1)
[2017-07-05 13:00] VITALS: BP 127/73
[2017-07-05 17:24] VITALS: BP 105/63
[2017-07-05 22:00] VITALS: BP 137/52
[2017-07-06] MEDS: HALOPERIDOL 1 MG TAB PO SCH ×3 (08:00→18:00)
[2017-07-06 09:12] VITALS: BP 104/54
[2017-07-06 13:00] VITALS: BP 113/54
[2017-07-06 21:39] VITALS: BP 106/59
[2017-07-07 05:47] VITALS: BP 119/62
[2017-07-07] MEDS: HALOPERIDOL 1 MG TAB PO SCH ×2 (08:00→18:35)
[2017-07-07] MEDS: BOOST PLUS 8 ounce PO SCH ×2 (12:20→18:35)
[2017-07-08] MEDS: HALOPERIDOL 1 MG TAB PO SCH ×2 (09:22→14:00)
[2017-07-08] MEDS: BOOST PLUS 8 ounce PO SCH ×3 (09:23→18:00)
[2017-07-09] MEDS: BOOST PLUS 8 ounce PO SCH ×3 (08:00→18:00)
[2017-07-09 08:05] VITALS: BP 112/76
[2017-07-09] MEDS: HALOPERIDOL 1 MG TAB PO SCH ×2 (08:21→18:05)
[2017-07-09 13:50] VITALS: BP 148/80
[2017-07-09 17:29] VITALS: BP 132/70
[2017-07-10] MEDS: BOOST PLUS 8 ounce PO SCH ×3 (07:48→17:57)
[2017-07-10] MEDS: HALOPERIDOL 1 MG TAB PO SCH ×2 (07:49→17:57)
[2017-07-10 17:00] VITALS: BP 103/75
[2017-07-11 09:00] VITALS: BP 121/46
[2017-07-11] MEDS: BOOST PLUS 8 ounce PO SCH ×3 (09:33→18:13)
[2017-07-11] MEDS: HALOPERIDOL 1 MG TAB PO SCH ×2 (09:34→18:13)
[2017-07-12] MEDS: BOOST PLUS 8 ounce PO SCH ×3 (08:25→18:15)
[2017-07-12] MEDS: HALOPERIDOL 1 MG TAB PO SCH ×2 (08:25→18:16)
[2017-07-13] MEDS: HALOPERIDOL 1 MG TAB PO SCH ×2 (08:25→18:23)
[2017-07-13] MEDS: BOOST PLUS 8 ounce PO SCH ×3 (08:25→18:23)
[2017-07-13 22:00] VITALS: BP 125/65
[2017-07-14 05:10] VITALS: BP 109/70
[2017-07-14] MEDS: BOOST PLUS 8 ounce PO SCH (08:00)
[2017-07-14] MEDS: HALOPERIDOL 1 MG TAB PO SCH ×2 (08:00→18:00)
[2017-07-14 21:44] VITALS: BP 96/78
[2017-07-15 05:00] VITALS: BP 126/87
[2017-07-15] MEDS: HALOPERIDOL 1 MG TAB PO SCH ×3 (08:00→18:00)
[2017-07-15] MEDS: BOOST PLUS 8 ounce PO SCH ×2 (08:00→18:00)
[2017-07-16] MEDS: BOOST PLUS 8 ounce PO SCH ×5 (07:10→17:35)
[2017-07-16] MEDS: HALOPERIDOL 1 MG TAB PO SCH ×2 (07:44→17:35)
[2017-07-16 09:00] VITALS: BP 117/64
[2017-07-16 17:00] VITALS: BP 107/75
[2017-07-17] MEDS: HALOPERIDOL 1 MG TAB PO SCH ×2 (08:02→19:44)
[2017-07-17] MEDS: BOOST PLUS 8 ounce PO SCH ×3 (08:06→18:00)
[2017-07-17 17:30] VITALS: BP 101/73
[2017-07-17 22:00] VITALS: BP 98/72
[2017-07-18] MEDS: BOOST PLUS 8 ounce PO SCH ×3 (08:11→18:07)
[2017-07-18] MEDS: HALOPERIDOL 1 MG TAB PO SCH ×2 (08:11→18:07)
[2017-07-18] MEDS ORDERED: LACTULOSE 20Gm/30ML SOLN PO ONE (15:15)
[2017-07-19 05:00] VITALS: BP 100/42
[2017-07-19] MEDS: BOOST PLUS 8 ounce PO SCH ×3 (07:45→18:33)
[2017-07-19] MEDS: HALOPERIDOL 1 MG TAB PO SCH ×2 (07:45→18:34)
[2017-07-20] MEDS: HALOPERIDOL 1 MG TAB PO SCH ×2 (08:02→17:59)
[2017-07-20] MEDS: BOOST PLUS 8 ounce PO SCH ×3 (08:02→17:16)
[2017-07-21] MEDS: HALOPERIDOL 1 MG TAB PO SCH ×2 (08:03→17:52)
[2017-07-21] MEDS: BOOST PLUS 8 ounce PO SCH ×3 (08:03→17:52)
[2017-07-22 04:59] VITALS: BP 112/48
[2017-07-22] MEDS: HALOPERIDOL 1 MG TAB PO SCH ×2 (08:21→18:25)
[2017-07-22] MEDS: BOOST PLUS 8 ounce PO SCH ×3 (08:22→18:25)
[2017-07-23] MEDS: BOOST PLUS 8 ounce PO SCH ×2 (08:34→19:07)
[2017-07-23] MEDS: HALOPERIDOL 1 MG TAB PO SCH ×2 (08:34→19:08)
[2017-07-24 08:00] VITALS: BP 103/68
[2017-07-24] MEDS: HALOPERIDOL 1 MG TAB PO SCH ×2 (08:08→18:10)
[2017-07-24] MEDS: BOOST PLUS 8 ounce PO SCH ×3 (08:09→18:45)
[2017-07-24 09:00] VITALS: BP 103/68
[2017-07-25] MEDS: HALOPERIDOL 1 MG TAB PO SCH ×3 (08:00→18:10)
[2017-07-25 09:00] VITALS: BP 127/65
[2017-07-25 17:30] VITALS: BP 122/70
[2017-07-26] MEDS: HALOPERIDOL 1 MG TAB PO SCH ×2 (08:06→17:59)
[2017-07-26 09:00] VITALS: BP 91/46
[2017-07-27] MEDS: HALOPERIDOL 1 MG TAB PO SCH (18:00)
[2017-07-28] MEDS: HALOPERIDOL 1 MG TAB PO SCH ×2 (13:54→19:04)
[2017-07-29] MEDS: HALOPERIDOL 1 MG TAB PO SCH ×2 (09:41→18:08)
[2017-07-30] MEDS: HALOPERIDOL 1 MG TAB PO SCH ×2 (07:31→17:50)
[2017-07-31] MEDS: HALOPERIDOL 1 MG TAB PO SCH ×2 (07:42→17:47)
[2017-08-01] MEDS: HALOPERIDOL 1 MG TAB PO SCH ×2 (08:26→18:26)
[2017-08-02 06:00] VITALS: BP 127/52
[2017-08-02] MEDS ORDERED: LORazepam 2MG/ML-1ML VIAL IV PRN (06:00)
[2017-08-02] MEDS ORDERED: HALOPERIDOL LACTATE 5 MG/ML INJ VIAL IM ONE (06:30)
[2017-08-02 07:00] VITALS: BP 94/60
[2017-08-02 07:15] VITALS: BP 116/74
[2017-08-02 08:46] VITALS: BP 106/64
[2017-08-02] MEDS: HALOPERIDOL 1 MG TAB PO SCH ×2 (08:51→18:01)
[2017-08-03] MEDS: HALOPERIDOL 1 MG TAB PO SCH ×2 (07:36→18:31)
[2017-08-04] MEDS: HALOPERIDOL 1 MG TAB PO SCH ×2 (07:54→18:22)
[2017-08-05] MEDS: HALOPERIDOL 1 MG TAB PO SCH ×2 (08:03→18:09)
[2017-08-06] MEDS: HALOPERIDOL 1 MG TAB PO SCH ×2 (08:00→18:22)
[2017-08-07] MEDS: HALOPERIDOL 1 MG TAB PO SCH ×2 (08:00→18:39)
[2017-08-08] MEDS: HALOPERIDOL 1 MG TAB PO SCH ×2 (07:53→18:00)
[2017-08-09] MEDS: HALOPERIDOL 1 MG TAB PO SCH ×2 (08:20→18:16)
[2017-08-10] MEDS: HALOPERIDOL 1 MG TAB PO SCH ×2 (08:08→18:27)
[2017-08-11] MEDS: HALOPERIDOL 1 MG TAB PO SCH ×2 (08:34→18:29)
[2017-08-11 14:08] VITALS: BP 93/59
[2017-08-11 16:16] VITALS: BP 93/58
[2017-08-12 09:00] VITALS: BP 101/61
[2017-08-12] MEDS: HALOPERIDOL 1 MG TAB PO SCH ×2 (10:32→18:14)
[2017-08-12 13:00] VITALS: BP 109/58
[2017-08-12 17:55] VITALS: BP 97/79
[2017-08-13] MEDS: HALOPERIDOL 1 MG TAB PO SCH ×2 (08:15→18:18)
[2017-08-13 08:56] VITALS: BP 107/63
[2017-08-13 13:00] VITALS: BP 111/68
[2017-08-13 17:30] VITALS: BP 98/60
[2017-08-14] MEDS: HALOPERIDOL 1 MG TAB PO SCH ×2 (08:15→18:26)
[2017-08-14 09:00] VITALS: BP 101/66
[2017-08-14 13:00] VITALS: BP 106/68
[2017-08-14 16:36] VITALS: BP 110/68
[2017-08-14 21:36] VITALS: BP 113/63
[2017-08-15 17:00] VITALS: BP 134/56
[2017-08-16 10:32] VITALS: BP 120/48
[2017-08-18] MEDS: HALOPERIDOL 1 MG TAB PO SCH (21:34)
[2017-08-19] MEDS: HALOPERIDOL 1 MG TAB PO SCH ×2 (08:18→21:21)
[2017-08-19 13:01] VITALS: BP 112/62
[2017-08-20] MEDS: HALOPERIDOL 1 MG TAB PO SCH ×2 (11:18→21:46)
[2017-08-20 21:44] VITALS: BP 131/111
[2017-08-20] MEDS: HYDROCORTONE 1% TOPICAL CREAM 30 GM TUBE TOP SCH (21:52)
[2017-08-21 12:53] VITALS: BP 128/70
[2017-08-21] MEDS: HALOPERIDOL 1 MG TAB PO SCH ×2 (13:07→21:42)
[2017-08-21] MEDS: HYDROCORTONE 1% TOPICAL CREAM 30 GM TUBE TOP SCH ×2 (13:07→21:41)
[2017-08-22] MEDS: HYDROCORTONE 1% TOPICAL CREAM 30 GM TUBE TOP SCH ×2 (10:00→22:00)
[2017-08-22] MEDS: HALOPERIDOL 1 MG TAB PO SCH ×3 (10:00→22:05)
[2017-08-23] MEDS: HYDROCORTONE 1% TOPICAL CREAM 30 GM TUBE TOP SCH ×2 (10:00→22:00)
[2017-08-23] MEDS: HALOPERIDOL 1 MG TAB PO SCH (23:15)
[2017-08-24] MEDS: HYDROCORTONE 1% TOPICAL CREAM 30 GM TUBE TOP SCH ×2 (10:00→21:46)
[2017-08-24] MEDS: HALOPERIDOL 1 MG TAB PO SCH ×2 (10:00→21:46)
[2017-08-25] MEDS: HALOPERIDOL 1 MG TAB PO SCH ×2 (10:49→18:41)
[2017-08-25] MEDS: HYDROCORTONE 1% TOPICAL CREAM 30 GM TUBE TOP SCH ×2 (10:50→22:43)
[2017-08-26] MEDS: HALOPERIDOL 1 MG TAB PO SCH ×2 (09:55→19:16)
[2017-08-26] MEDS: HYDROCORTONE 1% TOPICAL CREAM 30 GM TUBE TOP SCH ×2 (09:55→23:09)
[2017-08-27] MEDS: HALOPERIDOL 1 MG TAB PO SCH ×2 (08:06→21:47)
[2017-08-27] MEDS: HYDROCORTONE 1% TOPICAL CREAM 30 GM TUBE TOP SCH ×2 (10:31→22:21)
[2017-08-28 09:34] VITALS: BP 116/75
[2017-08-28] MEDS: HYDROCORTONE 1% TOPICAL CREAM 30 GM TUBE TOP SCH ×2 (10:00→22:13)
[2017-08-28] MEDS: HALOPERIDOL 1 MG TAB PO SCH ×2 (10:00→22:13)
[2017-08-28 13:00] VITALS: BP 112/75
[2017-08-28 16:42] VITALS: BP 116/69
[2017-08-29 09:00] VITALS: BP 120/81
[2017-08-29] MEDS: HYDROCORTONE 1% TOPICAL CREAM 30 GM TUBE TOP SCH ×2 (11:09→21:20)
[2017-08-29] MEDS: HALOPERIDOL 1 MG TAB PO SCH ×2 (11:09→21:20)
[2017-08-29 13:00] VITALS: BP 123/80
[2017-08-29 17:58] VITALS: BP 109/75
[2017-08-30] MEDS: HALOPERIDOL 1 MG TAB PO SCH ×2 (14:46→21:55)
[2017-08-30] MEDS: HYDROCORTONE 1% TOPICAL CREAM 30 GM TUBE TOP SCH ×2 (14:46→21:57)
[2017-08-30 17:00] VITALS: BP 105/85
[2017-08-31] MEDS: HALOPERIDOL 1 MG TAB PO SCH ×2 (09:08→22:00)
[2017-08-31] MEDS: HYDROCORTONE 1% TOPICAL CREAM 30 GM TUBE TOP SCH ×2 (09:38→22:00)
[2017-09-01] MEDS: HYDROCORTONE 1% TOPICAL CREAM 30 GM TUBE TOP SCH ×2 (08:03→22:19)
[2017-09-01] MEDS: HALOPERIDOL 1 MG TAB PO SCH ×2 (08:03→22:00)
[2017-09-02] MEDS: HALOPERIDOL 1 MG TAB PO SCH ×2 (08:12→22:17)
[2017-09-02] MEDS: HYDROCORTONE 1% TOPICAL CREAM 30 GM TUBE TOP SCH ×2 (08:13→22:17)
[2017-09-03] MEDS: HYDROCORTONE 1% TOPICAL CREAM 30 GM TUBE TOP SCH ×2 (08:55→22:00)
[2017-09-03] MEDS: HALOPERIDOL 1 MG TAB PO SCH ×2 (08:55→22:00)
[2017-09-04] MEDS: HALOPERIDOL 1 MG TAB PO SCH ×2 (02:52→22:00)
[2017-09-04 05:00] VITALS: BP 102/63
[2017-09-04] MEDS ORDERED: HALOPERIDOL 1 MG TAB PO ONE (08:15)
[2017-09-04] MEDS: HYDROCORTONE 1% TOPICAL CREAM 30 GM TUBE TOP SCH (08:39)
[2017-09-05] MEDS: HYDROCORTONE 1% TOPICAL CREAM 30 GM TUBE TOP SCH ×3 (01:49→22:00)
[2017-09-05] MEDS: HALOPERIDOL 1 MG TAB PO SCH ×2 (08:16→21:33)
[2017-09-06] MEDS: HALOPERIDOL 1 MG TAB PO PRN (08:22)
[2017-09-06] MEDS: HYDROCORTONE 1% TOPICAL CREAM 30 GM TUBE TOP SCH ×2 (10:00→22:22)
[2017-09-07 08:00] VITALS: BP 139/60
[2017-09-07] MEDS: HYDROCORTONE 1% TOPICAL CREAM 30 GM TUBE TOP SCH ×2 (09:12→22:00)
[2017-09-08] MEDS: HALOPERIDOL 1 MG TAB PO PRN (08:20)
[2017-09-08] MEDS: HALOPERIDOL 1 MG TAB PO SCH (22:00)
[2017-09-09] MEDS: HALOPERIDOL 1 MG TAB PO SCH ×2 (09:12→22:21)
[2017-09-10] MEDS: HALOPERIDOL 1 MG TAB PO SCH ×2 (10:56→22:41)
[2017-09-11] MEDS: HALOPERIDOL 1 MG TAB PO SCH ×2 (10:23→21:39)
[2017-09-12] MEDS: HALOPERIDOL 1 MG TAB PO SCH ×2 (13:22→22:14)
[2017-09-13] MEDS: HALOPERIDOL 1 MG TAB PO SCH ×2 (12:54→22:39)
[2017-09-14] MEDS: HALOPERIDOL 1 MG TAB PO SCH ×3 (07:00→18:19)
[2017-09-15] MEDS: HALOPERIDOL 1 MG TAB PO SCH ×2 (07:00→18:09)
[2017-09-16] MEDS: HALOPERIDOL 1 MG TAB PO SCH ×2 (08:06→18:36)
[2017-09-18] MEDS: HALOPERIDOL 1 MG TAB PO SCH ×2 (07:00→18:19)
[2017-09-19] MEDS: HALOPERIDOL 1 MG TAB PO SCH ×2 (07:51→18:31)
[2017-09-19 08:28] VITALS: BP 125/97
[2017-09-19 13:25] VITALS: BP 124/87
[2017-09-19 16:51] VITALS: BP 125/85
[2017-09-20] MEDS: HALOPERIDOL 1 MG TAB PO SCH ×2 (07:58→18:06)
[2017-09-21] MEDS: HALOPERIDOL 1 MG TAB PO SCH ×2 (07:51→18:35)
[2017-09-22] MEDS: HALOPERIDOL 1 MG TAB PO SCH ×2 (08:10→18:28)
[2017-09-22 20:49] VITALS: BP 125/72
[2017-09-23 05:30] VITALS: BP 128/75
[2017-09-23] MEDS: HALOPERIDOL 1 MG TAB PO SCH (06:41)
[2017-09-24] MEDS: HALOPERIDOL 1 MG TAB PO SCH ×3 (07:00→18:26)
[2017-09-24 13:00] VITALS: BP 126/72
[2017-09-24 22:00] VITALS: BP 99/82
[2017-09-25 05:01] VITALS: BP 101/74
[2017-09-25] MEDS: HALOPERIDOL 1 MG TAB PO SCH ×2 (07:42→18:20)
[2017-09-25 14:00] VITALS: BP 104/42
[2017-09-25 17:00] VITALS: BP 119/66
[2017-09-25 21:48] VITALS: BP 113/75
[2017-09-26 05:00] VITALS: BP 128/69
[2017-09-26] MEDS: HALOPERIDOL 1 MG TAB PO SCH ×2 (07:53→18:04)
[2017-09-26 12:17] VITALS: BP 118/72
[2017-09-27] MEDS: HALOPERIDOL 1 MG TAB PO SCH ×2 (07:30→18:30)
[2017-09-27 22:00] VITALS: BP 120/74
[2017-09-28 05:00] VITALS: BP 101/69
[2017-09-28] MEDS: HALOPERIDOL 1 MG TAB PO SCH ×2 (06:14→18:16)
[2017-09-28 22:00] VITALS: BP 124/68
[2017-09-29] MEDS: HALOPERIDOL 1 MG TAB PO SCH ×2 (06:09→18:06)
[2017-09-29 17:00] VITALS: BP 119/54
[2017-09-30] MEDS: HALOPERIDOL 1 MG TAB PO SCH ×2 (07:51→19:10)
[2017-09-30 21:54] VITALS: BP 125/49
[2017-09-30 22:16] LABS: Basophils # (auto) 0 uL; Basophils % (auto) 0.4 % (0.0-2.0); Eosinophils # (auto) 0.5 uL; Eosinophils % (auto) 5.3 % (0.0-7.0); Hematocrit 41.5 % (36.0-46.0); Hemoglobin 13.9 g/dL (12.2-16.2); Lymphocytes % (auto) 29.8 % (10.0-50.0); Mean Corpuscular Hemoglobin 31.3 pg (28.0-32.0); Mean Corpuscular Hgb Conc. 33.5 g/dL (32.0-36.0); Mean Corpuscular Volume 93.4 fL (80.0-100.0); Monocytes # (auto) 1.1 uL; Monocytes % (auto) 10.6 % (0.0-12.0); Neutrophils # (auto) 5.4 uL; Neutrophils % (auto) 53.9 % (37.0-80.0); Nucleated Red Blood Cells % 0.1 %; Platelet Count (auto) 233 10^3/uL (140-450); Red Blood Cells 4.44 10^6/uL (4.0-5.20); Red Cell Distribution Width 12.8 % (11.8-14.3)
[2017-09-30 22:34] LABS: Albumin 3.5 g/dL (3.4-5.0); BUN/Creatinine Ratio 32.7; Calcium 9.3 mg/dL (8.5-10.1); Potassium 4.3 mmol/L (3.5-5.1)
[2017-09-30 22:37] LABS: Bilirubin, Total 0.3 mg/dL (0.2-1.0); Total Protein 7.2 g/dL (6.4-8.2)
[2017-10-01] MEDS: HALOPERIDOL 1 MG TAB PO SCH ×3 (08:04→22:55)
[2017-10-01 22:00] VITALS: BP 115/79
[2017-10-02] MEDS: HALOPERIDOL 1 MG TAB PO SCH (08:10)
[2017-10-06] MEDS ORDERED: LACTULOSE 20Gm/30ML SOLN PO PRN (11:00)
[2017-10-06 22:00] VITALS: BP 121/74
[2017-10-07 05:00] VITALS: BP 111/63
[2017-10-07 20:00] VITALS: BP 95/64
[2017-10-08 17:50] VITALS: BP 131/68
[2017-10-08 21:30] VITALS: BP 131/91
[2017-10-09 05:00] VITALS: BP 109/65
[2017-10-09 09:00] VITALS: BP 129/56
[2017-10-09 13:00] VITALS: BP 139/85
[2017-10-09 16:18] VITALS: BP 107/62
[2017-10-09 23:52] VITALS: BP 101/54
[2017-10-10 09:00] VITALS: BP 91/49
[2017-10-10 16:18] VITALS: BP 99/51
[2017-10-10 22:00] VITALS: BP 93/51
[2017-10-10 22:05] VITALS: BP 91/49
[2017-10-11 05:00] VITALS: BP 108/58
[2017-10-12 00:17] VITALS: BP 98/62
[2017-10-12 05:00] VITALS: BP 100/58
[2017-10-15] MEDS: BETAMETHASONE DIPROP0.05% TOPICAL CREAM 15GM TOP SCH (22:00)
[2017-10-16] MEDS: BETAMETHASONE DIPROP0.05% TOPICAL CREAM 15GM TOP SCH ×2 (12:52→21:53)
[2017-10-17] MEDS: BETAMETHASONE DIPROP0.05% TOPICAL CREAM 15GM TOP SCH ×2 (10:00→22:00)
[2017-10-18] MEDS: BETAMETHASONE DIPROP0.05% TOPICAL CREAM 15GM TOP SCH ×2 (09:29→22:00)
[2017-10-18] MEDS ORDERED: LACTULOSE 20Gm/30ML SOLN PO PRN (19:00)
[2017-10-19] MEDS: BETAMETHASONE DIPROP0.05% TOPICAL CREAM 15GM TOP SCH ×2 (10:00→22:00)
[2017-10-20] MEDS ORDERED: HALOPERIDOL 1 MG TAB PO PRN (09:30)
[2017-10-20] MEDS: BETAMETHASONE DIPROP0.05% TOPICAL CREAM 15GM TOP SCH ×2 (10:00→22:00)
[2017-10-21] MEDS: BETAMETHASONE DIPROP0.05% TOPICAL CREAM 15GM TOP SCH ×2 (09:25→22:00)
[2017-10-22] MEDS: BETAMETHASONE DIPROP0.05% TOPICAL CREAM 15GM TOP SCH ×2 (10:00→21:37)
[2017-10-23] MEDS: BETAMETHASONE DIPROP0.05% TOPICAL CREAM 15GM TOP SCH ×2 (10:00→22:00)
[2017-10-24] MEDS: BETAMETHASONE DIPROP0.05% TOPICAL CREAM 15GM TOP SCH ×2 (10:00→22:00)
[2017-10-24 22:00] VITALS: BP 119/71
[2017-10-25 05:46] VITALS: BP 109/63
[2017-10-25] MEDS: BETAMETHASONE DIPROP0.05% TOPICAL CREAM 15GM TOP SCH ×2 (10:00→22:00)
[2017-10-26] MEDS: BETAMETHASONE DIPROP0.05% TOPICAL CREAM 15GM TOP SCH ×2 (10:00→22:00)
[2017-10-26 21:30] VITALS: BP 118/64
[2017-10-27 05:00] VITALS: BP 98/63
[2017-10-27] MEDS: BETAMETHASONE DIPROP0.05% TOPICAL CREAM 15GM TOP SCH ×2 (10:00→22:00)
[2017-10-28] MEDS: HALOPERIDOL 1 MG TAB PO SCH ×2 (12:31→22:00)
[2017-10-28] MEDS: BETAMETHASONE DIPROP0.05% TOPICAL CREAM 15GM TOP SCH (22:00)
[2017-10-29 04:57] VITALS: BP 141/66
[2017-10-29] MEDS: HALOPERIDOL 1 MG TAB PO SCH ×2 (08:17→22:00)
[2017-10-29] MEDS: BETAMETHASONE DIPROP0.05% TOPICAL CREAM 15GM TOP SCH ×2 (10:00→22:00)
[2017-10-30] MEDS: BETAMETHASONE DIPROP0.05% TOPICAL CREAM 15GM TOP SCH ×2 (10:00→22:00)
[2017-10-30] MEDS: HALOPERIDOL 1 MG TAB PO SCH ×2 (10:56→22:00)
[2017-10-31] MEDS: BETAMETHASONE DIPROP0.05% TOPICAL CREAM 15GM TOP SCH ×2 (10:00→21:49)
[2017-10-31] MEDS: HALOPERIDOL 1 MG TAB PO SCH ×2 (11:01→21:49)
[2017-11-01] MEDS: HALOPERIDOL 1 MG TAB PO SCH ×2 (10:00→21:36)
[2017-11-01] MEDS: BETAMETHASONE DIPROP0.05% TOPICAL CREAM 15GM TOP SCH ×2 (10:00→20:52)
[2017-11-02] MEDS: HALOPERIDOL 1 MG TAB PO SCH ×2 (08:17→22:00)
[2017-11-02] MEDS: BETAMETHASONE DIPROP0.05% TOPICAL CREAM 15GM TOP SCH ×2 (09:17→22:00)
[2017-11-03] MEDS: HALOPERIDOL 1 MG TAB PO SCH ×2 (08:00→22:00)
[2017-11-03] MEDS: BETAMETHASONE DIPROP0.05% TOPICAL CREAM 15GM TOP SCH ×2 (10:00→22:00)
[2017-11-04] MEDS: BETAMETHASONE DIPROP0.05% TOPICAL CREAM 15GM TOP SCH ×2 (10:00→22:00)
[2017-11-04] MEDS: HALOPERIDOL 1 MG TAB PO SCH ×2 (10:00→22:00)
[2017-11-05 05:00] VITALS: BP 128/67
[2017-11-05] MEDS: BETAMETHASONE DIPROP0.05% TOPICAL CREAM 15GM TOP SCH ×2 (10:00→22:00)
[2017-11-05] MEDS: HALOPERIDOL 1 MG TAB PO SCH ×2 (11:30→22:17)
[2017-11-06] MEDS: BETAMETHASONE DIPROP0.05% TOPICAL CREAM 15GM TOP SCH ×2 (10:00→22:00)
[2017-11-06] MEDS: HALOPERIDOL 1 MG TAB PO SCH ×2 (12:40→22:00)
[2017-11-07] MEDS: HALOPERIDOL 1 MG TAB PO SCH ×2 (09:29→22:00)
[2017-11-07] MEDS: BETAMETHASONE DIPROP0.05% TOPICAL CREAM 15GM TOP SCH ×2 (09:29→22:00)
[2017-11-08] MEDS: HALOPERIDOL 1 MG TAB PO SCH ×2 (09:22→22:30)
[2017-11-08] MEDS: BETAMETHASONE DIPROP0.05% TOPICAL CREAM 15GM TOP SCH ×2 (09:22→22:30)
[2017-11-09] MEDS: HALOPERIDOL 1 MG TAB PO SCH ×3 (08:10→22:19)
[2017-11-09] MEDS: BETAMETHASONE DIPROP0.05% TOPICAL CREAM 15GM TOP SCH ×3 (09:25→22:20)
[2017-11-10] MEDS: HALOPERIDOL 1 MG TAB PO SCH ×2 (08:12→21:49)
[2017-11-10] MEDS ORDERED: TUBERCULIN PPD 5 UNIT/0.1 ML ID ONE (11:00)
[2017-11-10] MEDS: BETAMETHASONE DIPROP0.05% TOPICAL CREAM 15GM TOP SCH ×2 (11:48→21:51)
[2017-11-11] MEDS: HALOPERIDOL 1 MG TAB PO SCH ×2 (10:00→22:00)
[2017-11-11] MEDS: BETAMETHASONE DIPROP0.05% TOPICAL CREAM 15GM TOP SCH ×2 (18:08→23:12)
[2017-11-12] MEDS: HALOPERIDOL 1 MG TAB PO SCH ×2 (10:00→22:00)
[2017-11-12] MEDS: BETAMETHASONE DIPROP0.05% TOPICAL CREAM 15GM TOP SCH ×2 (10:00→22:00)
[2017-11-13] MEDS: BETAMETHASONE DIPROP0.05% TOPICAL CREAM 15GM TOP SCH ×2 (10:00→22:00)
[2017-11-13] MEDS: HALOPERIDOL 1 MG TAB PO SCH ×2 (10:00→22:00)
[2017-11-13] MEDS ORDERED: HALOPERIDOL LACTATE 5 MG/ML INJ VIAL IM ONE (14:45)
[2017-11-14] MEDS: BETAMETHASONE DIPROP0.05% TOPICAL CREAM 15GM TOP SCH ×2 (10:00→22:00)
[2017-11-14] MEDS: HALOPERIDOL 1 MG TAB PO SCH ×3 (10:55→22:39)
[2017-11-15] MEDS: BETAMETHASONE DIPROP0.05% TOPICAL CREAM 15GM TOP SCH (21:49)
[2017-11-16] MEDS: BETAMETHASONE DIPROP0.05% TOPICAL CREAM 15GM TOP SCH ×2 (10:59→22:45)
[2017-11-16] MEDS: HALOPERIDOL 1 MG TAB PO PRN (12:17)
[2017-11-17] MEDS: BETAMETHASONE DIPROP0.05% TOPICAL CREAM 15GM TOP SCH ×2 (10:55→22:04)
[2017-11-18] MEDS: BETAMETHASONE DIPROP0.05% TOPICAL CREAM 15GM TOP SCH ×2 (10:45→22:11)
[2017-11-19] MEDS: BETAMETHASONE DIPROP0.05% TOPICAL CREAM 15GM TOP SCH ×2 (09:13→22:20)
[2017-11-19 17:00] VITALS: BP 104/60
[2017-11-20] MEDS: BETAMETHASONE DIPROP0.05% TOPICAL CREAM 15GM TOP SCH ×2 (10:00→22:00)
[2017-11-20] MEDS: HALOPERIDOL 1 MG TAB PO PRN (10:11)
[2017-11-21] MEDS: HALOPERIDOL 1 MG TAB PO PRN (08:31)
[2017-11-21] MEDS: BETAMETHASONE DIPROP0.05% TOPICAL CREAM 15GM TOP SCH ×2 (10:00→21:52)
[2017-11-22] MEDS: BETAMETHASONE DIPROP0.05% TOPICAL CREAM 15GM TOP SCH ×2 (09:46→21:45)
[2017-11-23] MEDS: BETAMETHASONE DIPROP0.05% TOPICAL CREAM 15GM TOP SCH ×2 (10:00→21:46)
[2017-11-24] MEDS: BETAMETHASONE DIPROP0.05% TOPICAL CREAM 15GM TOP SCH ×2 (10:00→22:00)
[2017-11-25] MEDS: BETAMETHASONE DIPROP0.05% TOPICAL CREAM 15GM TOP SCH ×2 (10:00→22:00)
[2017-11-26] MEDS: BETAMETHASONE DIPROP0.05% TOPICAL CREAM 15GM TOP SCH ×2 (10:00→22:00)
[2017-11-27] MEDS: BETAMETHASONE DIPROP0.05% TOPICAL CREAM 15GM TOP SCH ×2 (10:00→22:00)
[2017-11-28] MEDS: BETAMETHASONE DIPROP0.05% TOPICAL CREAM 15GM TOP SCH ×2 (09:37→22:00)
[2017-11-29] MEDS: BETAMETHASONE DIPROP0.05% TOPICAL CREAM 15GM TOP SCH ×2 (10:00→22:00)
[2017-11-30] MEDS: BETAMETHASONE DIPROP0.05% TOPICAL CREAM 15GM TOP SCH ×2 (10:00→21:45)
[2017-12-01] MEDS: BETAMETHASONE DIPROP0.05% TOPICAL CREAM 15GM TOP SCH ×2 (10:00→21:11)
[2017-12-02] MEDS: BETAMETHASONE DIPROP0.05% TOPICAL CREAM 15GM TOP SCH ×2 (10:08→21:44)
[2017-12-03] MEDS: BETAMETHASONE DIPROP0.05% TOPICAL CREAM 15GM TOP SCH ×2 (10:00→22:00)
[2017-12-12 09:00] VITALS: BP 119/74
[2017-12-12 18:53] VITALS: BP 130/70
[2017-12-19] MEDS: EUCERIN CREAM 2OZ TUBE TOP SCH (15:58)
[2017-12-19 20:50] LABS: Basophils # (auto) 0 uL; Basophils % (auto) 0.3 % (0.0-2.0); Eosinophils # (auto) 0.6 uL; Eosinophils % (auto) 4.6 % (0.0-7.0); Hematocrit 43.3 % (36.0-46.0); Hemoglobin 14.4 g/dL (12.2-16.2); Lymphocytes # (auto) 3.7 uL; Lymphocytes % (auto) 30.7 % (10.0-50.0); Mean Corpuscular Hemoglobin 30.8 pg (28.0-32.0); Mean Corpuscular Hgb Conc. 33.2 g/dL (32.0-36.0); Mean Corpuscular Volume 92.8 fL (80.0-100.0); Monocytes # (auto) 0.9 uL; Monocytes % (auto) 7.7 % (0.0-12.0); Neutrophils # (auto) 6.8 uL; Neutrophils % (auto) 56.7 % (37.0-80.0); Platelet Count (auto) 264 10^3/uL (140-450); Red Blood Cells 4.66 10^6/uL (4.0-5.20); Red Cell Distribution Width 12.5 % (11.8-14.3); White Blood Cell 12.1 10^3/uL (4.4-10.8)
[2017-12-19 21:11] LABS: Albumin 4.3 g/dL (3.4-5.0); Bilirubin, Total 0.4 mg/dL (0.2-1.0); Calcium 9.2 mg/dL (8.5-10.1); Potassium 3.3 mmol/L (3.5-5.1); Total Protein 8.4 g/dL (6.4-8.2)
[2017-12-20] MEDS ORDERED: CEPHALEXIN 250 MG CAP PO SCH (12:00)
[2017-12-20] MEDS: CEPHALEXIN 250 MG/5ml ORAL Susp 200ML BTL PO SCH ×3 (12:45→23:25)
[2017-12-20] MEDS: EUCERIN CREAM 2OZ TUBE TOP SCH (14:42)
[2017-12-21] MEDS: CEPHALEXIN 250 MG/5ml ORAL Susp 200ML BTL PO SCH ×2 (05:50→12:00)
[2017-12-21] MEDS: EUCERIN CREAM 2OZ TUBE TOP SCH (10:00)
[2017-12-22] MEDS: CEPHALEXIN 250 MG/5ml ORAL Susp 200ML BTL PO SCH ×5 (06:00→23:35)
[2017-12-22] MEDS: EUCERIN CREAM 2OZ TUBE TOP SCH (10:30)
[2017-12-23] MEDS: CEPHALEXIN 250 MG/5ml ORAL Susp 200ML BTL PO SCH ×2 (06:00→12:15)
[2017-12-23 07:39] LABS: Basophils # (auto) 0 uL; Basophils % (auto) 0.2 % (0.0-2.0); Eosinophils # (auto) 0.5 uL; Eosinophils % (auto) 5.8 % (0.0-7.0); Hematocrit 41.4 % (36.0-46.0); Lymphocytes # (auto) 2.2 uL; Mean Corpuscular Hemoglobin 31.2 pg (28.0-32.0); Mean Corpuscular Hgb Conc. 33.9 g/dL (32.0-36.0); Mean Corpuscular Volume 92.3 fL (80.0-100.0); Monocytes # (auto) 0.8 uL; Monocytes % (auto) 8.9 % (0.0-12.0); Neutrophils # (auto) 5.4 uL; Neutrophils % (auto) 60.1 % (37.0-80.0); Nucleated Red Blood Cells % 0.1 %; Platelet Count (auto) 254 10^3/uL (140-450); Red Blood Cells 4.49 10^6/uL (4.0-5.20); Red Cell Distribution Width 12.4 % (11.8-14.3)
[2017-12-23] MEDS: EUCERIN CREAM 2OZ TUBE TOP SCH (10:14)
[2017-12-23] MEDS ORDERED: LORazepam 2MG/ML-1ML VIAL IM ONE (15:45)
[2017-12-23 17:45] VITALS: BP 125/96
== END 2017-12-23 18:55 | disposition psychiatric hospital, planned readmission (93) | DRG 42 ==
LOC: ER 12:57 → OVERFLOW 12:58 → EAST 05-03 10:22 → CENTRAL 05-28 20:55
PROVIDERS: ADMIT Family Medicine; ATTEND Internal Medicine
DX: G10 Huntington's disease (principal); G93.41 Metabolic encephalopathy; E44.0 Moderate protein-calorie malnutrition; R45.851 Suicidal ideations; F02.80 Dementia in other diseases classified elsewhere, unspecified severity, without behavioral disturbance, psychotic disturbance, mood disturbance, and anxiety; F29 Unspecified psychosis not due to a substance or known physiological condition; G25.9 Extrapyramidal and movement disorder, unspecified; E87.6 Hypokalemia; L20.9 Atopic dermatitis, unspecified; Z79.899 Other long term (current) drug therapy; Z87.891 Personal history of nicotine dependence; Z68.1 Body mass index [BMI] 19.9 or less, adult; E88.09 Other disorders of plasma-protein metabolism, not elsewhere classified
CPT/HCPCS: 36415; 80048; 80053; 84702; 85025; 87081; 96372; A4565

== ENCOUNTER → 2017-05-02 | Emergency (ER) | payer SELFPAY | END | disposition left against medical advice (07) | LOC: ER 10:49 | DX: Z76.1 Encounter for health supervision and care of foundling (principal); Z53.21 Procedure and treatment not carried out due to patient leaving prior to being seen by health care provider ==